=== PATIENT | male | born 1955 | race Caucasian/White ===

== ENCOUNTER → 2016-11-13 | Outpatient (CLI) | payer BC ==
[2016-11-13 11:25] VITALS: BMI 21.6
== END | disposition home or self-care (01) ==
LOC: MNTWWP 10:52
PROVIDERS: ATTEND Family Medicine
DX: E16.2 Hypoglycemia, unspecified (principal)

== ENCOUNTER 2018-02-22 03:45 | Emergency (ER) | payer BC, OTHER ==
[2018-02-22 03:55] VITALS: BP 154/101; PULSE 78; RESP 16; TEMP 97.7
[2018-02-22] MEDS ORDERED: DIPH,PERTUS(ACELL)TETVAC-LF 0.5 ML VIAL IM ONE (04:18)
--- NOTE | 2018-02-22 04:21 | ED ---
General Adult HPI - General Chief complaint: Extremity Injury, Upper Stated complaint: Finger injury Time Seen by Provider: 02/22/18 04:09 Source: patient, RN notes reviewed Mode of arrival: ambulatory Limitations: no limitations - History of Present Illness Initial comments: Patient is a pleasant 62-year-old male presenting to the emergency department following left hand injury. Incident occurred up to 10 hours ago while at work. Patient got his hand caught between the high low and a dumpster. Patient does have discomfort that increases movement. Patient has had mild bleeding persistently since that time. Patient is on a baby aspirin daily. No other injury of injury. Unclear last tetanus immunization. Discomfort is mostly the index and middle finger. - Related Data Previous Rx's Medication Instructions Recorded Cephalexin [Keflex] 500 mg PO QID #40 cap 02/22/18 Allergies Allergy/AdvReac Type Severity Reaction Status Date / Time No Known Allergies Allergy Verified 02/22/18 03:55 Review of Systems ROS Statement: Those systems with pertinent positive or pertinent negative responses have been documented in the HPI. ROS Other: All systems not noted in ROS Statement are negative. Constitutional: Denies: fever Eyes: Denies: eye pain ENT: Denies: ear pain Respiratory: Denies: cough Cardiovascular: Denies: chest pain Endocrine: Denies: fatigue Gastrointestinal: Denies: abdominal pain Genitourinary: Denies: dysuria Musculoskeletal: Denies: back pain Skin: Denies: rash Neurological: Denies: weakness Past Medical History Past Medical History: No Reported History History of Any Multi-Drug Resistant Organisms: None Reported Past Surgical History: No Surgical Hx Reported Past Psychological History: No Psychological Hx Reported Smoking Status: Current every day smoker Past Alcohol Use History: Occasional Past Drug Use History: None Reported General Exam Limitations: no limitations General appearance: alert, in no apparent distress Head exam: Present: atraumatic Eye exam: Present: normal appearance Neck exam: Present: normal inspection. Absent: tenderness Respiratory exam: Present: normal lung sounds bilaterally Cardiovascular Exam: Present: regular rate, normal rhythm GI/Abdominal exam: Present: soft. Absent: tenderness Extremities exam: Present: other (Left hand with swelling and tenderness of the index and middle finger. Limited assessment of tendon function and strength secondary to discomfort. Distally sensation is intact. Cap refill less than 2 seconds. There is a small puncture on the index finger with mild oozing. There is a laceration of the middle finger on the palmar side at the PIP.) Neurological exam: Present: alert Psychiatric exam: Present: normal affect, normal mood Skin exam: Present: normal color Course Vital Signs 02/22/18 03:52 Temperature 97.7 F Pulse Rate 78 Respiratory 16 Rate Blood Pressure 154/101 O2 Sat by Pulse 98 Oximetry Procedures - Laceration Laceration #1 Consent Obtained: verbal consent Time Out Performed: Yes Indication: laceration Site: hand Description: linear Depth: simple, single layer (No tendon visualized on a clean bloodless field.) Anesthesia Technique: nerve block (Digital block left middle finger) Pre-repair: wound explored, irrigated extensively Type of Sutures: nylon Size of Sutures: 4-0 Number of Sutures: 3 Technique: simple, interrupted Patient Tolerated Procedure: well, no complications Medical Decision Making - Medical Decision Making Patient updated on need for close follow-up with orthopedics - Radiology Data Interpreted by me: X-ray left hand does show fractures of the mid phalanx of the index and middle finger. Relatively nondisplaced. Disposition Clinical Impression: Fracture of phalanx of index finger, Fracture of finger, middle phalanx, left, open, Finger laceration Disposition: HOME SELF-CARE Condition: Stable Instructions: Laceration (ED), Hand Fracture (ED) Additional Instructions: Please start antibiotics in the morning. Please follow-up with orthopedics on Saturday for further evaluation. It is important follow-up with orthopedics regarding further care and further assessment for possible tendon injury. Return for increased pain, bleeding, worsening symptoms or other concerns. Suture removal in 8-10 days. Please keep fingers splinted until further advised by orthopedics. Twice daily wash fingers with soap and water, apply antibiotic ointment and keep bandaged and splinted. Prescriptions: Cephalexin [Keflex] 500 mg PO QID #40 cap Is patient prescribed a controlled substance at d/c from ED?: No Referrals: Ge Martinez DO [Primary Care Provider] - 1-2 days Time of Disposition: 05:28
[2018-02-22] MEDS ORDERED: LIDOCAINE 1% INJ 10MG/ML (20 ML MDV) SQ ONE (04:44)
--- NOTE | 2018-02-22 05:24 | XR ---
EXAM: XR Left Hand Complete, 3 or More Views CLINICAL HISTORY: ITS.REASON XR Reason: Pain TECHNIQUE: Frontal, lateral and oblique views of the left hand. COMPARISON: No relevant prior studies available. FINDINGS: Comminuted fracture minimally displaced middle phalanx second digit. Lucency is noted to the middle phalanx of third digit seen only on 2 of the views. Correlation with physical exam was a nondisplaced fracture of the middle phalanx of third finger cannot be totally excluded. IMPRESSION: Minimally displaced comminuted fracture middle phalanx second digit. The fracture appears to be limited to the mid diaphysis with no involvement of the articular surface
[2018-02-22] MEDS ORDERED: CEPHALEXIN 500 MG CAP PO STA (05:28)
--- NOTE | 2018-02-24 08:19 | CDI ---
Documentation Clarification OP Dear Dixon HIGUERA, DO Please do addendum to ED report that describes the laceration length and depth of the repair. Thank you, Vy Bartlett Digital Service Engineer If you have any question, Please contact coding director at [phone] 2.5 cm MTDD
== END 2018-02-22 05:48 | disposition home or self-care (01) ==
LOC: EC 03:45
DX: S62.623B Displaced fracture of middle phalanx of left middle finger, initial encounter for open fracture (principal); S62.621A Displaced fracture of middle phalanx of left index finger, initial encounter for closed fracture; S61.231A Puncture wound without foreign body of left index finger without damage to nail, initial encounter; F17.200 Nicotine dependence, unspecified, uncomplicated; Z23 Encounter for immunization; Z79.82 Long term (current) use of aspirin; W23.0XXA Caught, crushed, jammed, or pinched between moving objects, initial encounter; Y99.0 Civilian activity done for income or pay; Y92.69 Other specified industrial and construction area as the place of occurrence of the external cause
CPT/HCPCS: 12001; 90471; 90715; 99283

== ENCOUNTER 2019-11-05 11:21 | Day surgery (SDC) | payer BC, MEDICARE, OTHER ==
[2019-11-03 11:29] VITALS: BMI 24.6
--- NOTE | 2019-11-05 07:21 | P.GSHP ---
History of Present Illness H&P Date: 11/05/19 CHIEF COMPLAINT: Colon screen HISTORY OF PRESENT ILLNESS: The patient is a 64-year-old male who presents for colon screen. Lower endoscopy was offered for further evaluation and management. PAST MEDICAL HISTORY: Please see list. PAST SURGICAL HISTORY: Please see list. MEDICATIONS: Please see list. ALLERGIES: Please see list. SOCIAL HISTORY: No illicit drug use FAMILY HISTORY: No reports of Crohn disease or ulcerative colitis. REVIEW OF ORGAN SYSTEMS: CONSTITUTIONAL: No reports of fevers or chills. PHYSICAL EXAM: VITAL SIGNS: Stable GENERAL: Well-developed pleasant in no acute distress. HEENT: No scleral icterus. Extraocular movements grossly intact. Moist buccal mucosa. NECK: Supple without lymphadenopathy. CHEST: Unlabored respirations. Equal bilateral excursions. CARDIOVASCULAR: Regular rate and rhythm. Distal 2+ pulses. ABDOMEN: Soft, nontender, nondistended. MUSCULOSKELETAL: No clubbing, cyanosis, or edema. ASSESSMENT: 1. Colon screen. PLAN: 1. Recommend proceeding with a lower endoscopy Past Medical History Past Medical History: Hyperlipidemia, Hypertension History of Any Multi-Drug Resistant Organisms: None Reported Past Surgical History: Orthopedic Surgery Additional Past Surgical History / Comment(s): colonoscopy,rt hand procedure Past Anesthesia/Blood Transfusion Reactions: No Reported Reaction Smoking Status: Former smoker - Past Family History Mother Family Medical History: Cancer Additional Family Medical History / Comment(s): colon Medications and Allergies Home Medications Medication Instructions Recorded Confirmed Type Amitriptyline HCl 50 mg PO HS 11/03/19 11/03/19 History Lisinopril-Hctz 20-12.5 mg 1 tab PO DAILY 11/03/19 11/03/19 History [Zestoretic 20-12.5] Multivitamins, Thera [Multivitamin 1 tab PO DAILY 11/03/19 11/03/19 History (formulary)] Simvastatin [Zocor] 20 mg PO HS 11/03/19 11/03/19 History traMADol HCL [Ultram] 50 mg PO Q6HR PRN 11/03/19 11/03/19 History Allergies Allergy/AdvReac Type Severity Reaction Status Date / Time unk medication Allergy Unknown-pt Uncoded 11/03/19 11:[address] Martinez's office and bring in
[~2019-11-05 11:21] MED LIST: LACTATED RINGERS 1,000 ML IV SCH; LIDOCAINE 1% 20 ML VIAL (10MG/ML) FOR IV START INTRADERMA PRN
[2019-11-05 11:42] VITALS: TEMP 99.4
[2019-11-05] MEDS ORDERED: PROPOFOL 10 MG/ML 20 ML VIAL IV ONE (13:07)
--- NOTE | 2019-11-05 13:34 | P.PCN ---
Date of Procedure: 11/05/19 Description of Procedure: PREOPERATIVE DIAGNOSIS: Personal history of colon polyps Colonoscopy screening. POSTOPERATIVE DIAGNOSIS: Personal history of colon polyps Colonoscopy screening Sigmoid diverticulosis Acute respiratory bronchospasm Multiple tubular adenomas throughout the colon OPERATION: Colonoscopy to the ileocecal valve and appendiceal orifice. SURGEON: Sandy Lemons MD. ANESTHESIA: MAC. INDICATIONS: The patient is a 64-year-old male who presents for colonoscopy screening. Last colonoscopy over 5 years ago. Benefits and risks were described and informed consent was obtained. DESCRIPTION OF PROCEDURE: The patient had undergone Suprep. He had been brought into the operating room and laid in the left lateral decubitus position. After adequate intravenous sedation, the rectum was examined with 2% lidocaine jelly. No external hemorrhoids were encountered. The rectal tone was within normal limits. No lesions were palpated in the rectal vault. An Olympus colonoscope was advanced until the ileocecal valve and appendiceal orifice were clearly viewed. The prep was excellent with clear visualization of the mucosal folds. The scope was removed with visualization of each mucosal fold. Severe sigmoid diverticulosis was encountered. No evidence of focal colitis was found. Retroflexion of the scope demonstrated grade 1 internal hemorrhoids without active bleeding or inflammation. Multiple polyps tubular adenomas were identified along the sigmoid colon including transverse and ascending colon. Moderate sized diverticulosis was found. During the procedure, patient decompensated with oxygen saturation in the 60s. Patient was bag masked alongside with anesthesia. As a result, the procedure was terminated. Chest x-ray ordered secondary to acute bronchospasm FINDINGS: Aronchick preparation quality scale 1 (1-5) Internal hemorrhoids, grade 2 No external prolapsed hemorrhoids. No arteriovenous malformations. Multiple tubular adenomatous polyps along ascending colon, transverse colon and sigmoid colon unable to retrieve due to early termination of his procedure from acute bronchospasm No focal colitis. RECOMMENDATIONS: 1. Recommend colonoscopy in 6 months, Apr 2020, after pulmonary workup 2. May also benefit from upper endoscopy for likely gastroesophageal reflux disease exacerbating acute bronchospasm. Plan - Discharge Summary Discharge Rx Participant: No New Discharge Prescriptions: Continue traMADol HCL [Ultram] 50 mg PO Q6HR PRN PRN Reason: Pain Simvastatin [Zocor] 20 mg PO HS Lisinopril-Hctz 20-12.5 mg [Zestoretic 20-12.5] 1 tab PO DAILY Amitriptyline HCl 50 mg PO HS Multivitamins, Thera [Multivitamin (formulary)] 1 tab PO DAILY Discharge Medication List Amitriptyline HCl 50 mg PO HS 11/03/19 [History] Lisinopril-Hctz 20-12.5 mg [Zestoretic 20-12.5] 1 tab PO DAILY 11/03/19 [History] Multivitamins, Thera [Multivitamin (formulary)] 1 tab PO DAILY 11/03/19 [History] Simvastatin [Zocor] 20 mg PO HS 11/03/19 [History] traMADol HCL [Ultram] 50 mg PO Q6HR PRN 11/03/19 [History] Follow up Appointment(s)/Referral(s): Sandy Lemons MD [STAFF PHYSICIAN] - 11/17/19 11:00 am Patient Instructions/Handouts: *Sur[facility] - (Anesthesia) Endoscopy Discharge Instructions, How to Stop Smoking (DC), Diverticulosis (ED), Colorectal Polyps (DC), Diverticulosis Diet (GEN), Bronchospasm (ED), Colonoscopy (DC) Activity/Diet/Wound Care/Special Instructions: Repeat colonoscopy in 6 months, April 2020. Recommended tobacco cessation and upper endoscopy at the time of your procedure. Discharge Disposition: HOME SELF-CARE
--- NOTE | 2019-11-05 14:05 | XR ---
EXAMINATION TYPE: XR chest 1V portable DATE OF EXAM: 11/05/2019 COMPARISON: 06/27/2016 INDICATION: Short of breath TECHNIQUE: Single frontal view of the chest is obtained. FINDINGS: The heart size is normal. The pulmonary vasculature is normal. The lungs are clear. IMPRESSION: 1. No acute pulmonary process.
[2019-11-05 14:49] VITALS: BP 115/76; PULSE 82; RESP 18
== END 2019-11-05 15:16 | disposition home or self-care (01) ==
LOC: ORWHC2ENDO 11:21
PROVIDERS: ATTEND Surgery Plastic and Reconstructive Surgery
DX: Z12.11 Encounter for screening for malignant neoplasm of colon (principal); K57.30 Diverticulosis of large intestine without perforation or abscess without bleeding; K64.0 First degree hemorrhoids; D12.2 Benign neoplasm of ascending colon; D12.3 Benign neoplasm of transverse colon; D12.5 Benign neoplasm of sigmoid colon; Z53.09 Procedure and treatment not carried out because of other contraindication; Z86.010 Personal history of colon polyps; Z80.0 Family history of malignant neoplasm of digestive organs; J98.01 Acute bronchospasm; E78.5 Hyperlipidemia, unspecified; I10 Essential (primary) hypertension; K08.89 Other specified disorders of teeth and supporting structures; Z88.8 Allergy status to other drugs, medicaments and biological substances; Z79.899 Other long term (current) drug therapy; Z98.890 Other specified postprocedural states; Z87.891 Personal history of nicotine dependence
CPT/HCPCS: 71045; J2704; G0105; 45378

== ENCOUNTER 2022-02-14 10:52 | Day surgery (SDC) | payer MEDICARE ==
[~2022-02-14 10:52] MED LIST changes: +LIDOCAINE 1% (10MG/ML) FOR IV START INTRADERMA PRN; -LIDOCAINE 1% 20 ML VIAL (10MG/ML) FOR IV START INTRADERMA PRN
[2022-02-14 11:38] VITALS: RESP 16; TEMP 98.6
[2022-02-14] MEDS ORDERED: PROPOFOL 10 MG/ML 20 ML VIAL IV ONE (12:26)
--- NOTE | 2022-02-14 12:56 | P.PCN ---
Date of Procedure: 02/14/22 Procedure(s) Performed: BRIEF HISTORY: Patient is a 66-year-old pleasant white male scheduled for an elective colonoscopy as a part of evaluation of history of colon polyps. He also has family history of colon cancer diagnosed in his mother. He had an attempted colonoscopy by Dr. Lemons years ago and was noted to have colon polyps in the ascending and transverse colon which were not removed as the patient had some bronchospasm and procedure was terminated. PROCEDURE PERFORMED: Colonoscopy with snare polypectomy. PREOPERATIVE DIAGNOSIS: History of colon polyps/family history of colon cancer. IV sedation per Anesthesia. PROCEDURE: After informed consent was obtained, the patient, was brought into the endoscopy unit. IV sedation was administered by Anesthesia under continuous monitoring. Digital rectal examination was normal. Initially the Olympus CF-160 flexible video colonoscope was then inserted in the rectum, gradually advanced into the cecum without any difficulty. Careful examination was performed as the scope was gradually being withdrawn. Ileocecal valve and the appendiceal orifice were visualized and appeared normal. Prep was poor and several areas of the colon. Thorough irrigation was performed. The base of the cecum there was a 3 mm and 5 limited polyp removed by snare polypectomy. In the ascending colon there was a 2.5 cm broad-based polyp removed by piecemeal snare polypectomy and complete polypectomy was accomplished. In the transverse colon there were 3 polyps measuring between 8 mm to 1 cm in size removed by snare polypectomy. In the descending colon there was a 2 cm broad-based polyp and a 5 mm polyp removed by snare polypectomy. Moderate left sided diverticulosis seen. Mucosa of the , sigmoid colon, and rectum appeared normal. Retroflexion was performed in the rectum and no lesions were seen. The patient tolerated the procedure well. IMPRESSION: 2.5 cm ascending colon polyp broad-based ascending colon polyp status post polypectomy 3 mm and 5 mm cecal polyp status post polypectomy 1 cm flat transverse colon polyp status post polypectomy 2 cm broad-based desscending colon polyp and a 5 mm polyp status post polypectomy Moderate sigmoid diverticulosis RECOMMENDATIONS: Findings of this examination were discussed with the patient as well as his family. He was advised to follow with the biopsy results and have a repeat colonoscopy in 2 years.
[2022-02-14 13:26] VITALS: BP 126/81; PULSE 77
== END 2022-02-14 13:35 | disposition home or self-care (01) ==
LOC: ORWHC2ENDO 10:52
PROVIDERS: ATTEND Internal Medicine Gastroenterology
DX: Z12.11 Encounter for screening for malignant neoplasm of colon (principal); D12.0 Benign neoplasm of cecum; D12.2 Benign neoplasm of ascending colon; D12.3 Benign neoplasm of transverse colon; D12.4 Benign neoplasm of descending colon; K57.30 Diverticulosis of large intestine without perforation or abscess without bleeding; I10 Essential (primary) hypertension; E78.5 Hyperlipidemia, unspecified; Z86.010 Personal history of colon polyps; Z80.0 Family history of malignant neoplasm of digestive organs; Z87.891 Personal history of nicotine dependence; Z79.899 Other long term (current) drug therapy
CPT/HCPCS: 88305; 45385; J2704

== ENCOUNTER 2024-04-03 12:06 | Day surgery (SDC) | payer MEDICARE ==
[2024-03-31 16:51] VITALS: BMI 21.6
[~2024-04-03 12:06] MED LIST changes: -LACTATED RINGERS 1,000 ML IV SCH
[2024-04-03 13:11] VITALS: TEMP 97.7
[2024-04-03] MEDS: IV FLUID CONTINUATION 1,000 ML IV ONE (13:16)
[2024-04-03] MEDS: LACTATED RINGERS 1,000 ML IV SCH (13:16)
[2024-04-03] MEDS ORDERED: PROPOFOL 10 MG/ML 20 ML VIAL IV ONE (14:37)
--- NOTE | 2024-04-03 14:54 | P.PCN ---
Date of Procedure: 04/03/24 Procedure(s) Performed: BRIEF HISTORY: Patient is a 68-year-old pleasant white male scheduled for an elective colonoscopy as a part of evaluation of prior history of colon polyps. Last colonoscopy was 2 years ago. PROCEDURE PERFORMED: Colonoscopy with snare polypectomy. PREOPERATIVE DIAGNOSIS: History of colon polyps IV sedation per Anesthesia. PROCEDURE: After informed consent was obtained, the patient, was brought into the endoscopy unit. IV sedation was administered by Anesthesia under continuous monitoring. Digital rectal examination was normal. Initially the Olympus CF-160 flexible video colonoscope was then inserted in the rectum, gradually advanced into the cecum without any difficulty. Careful examination was performed as the scope was gradually being withdrawn. Ileocecal valve and the appendiceal orifice were visualized and appeared normal. Prep was excellent. Mucosa of the cec um,been normal. In the ascending colon there was a 5 mm and 1.5 cm broad-based polyp removed by snare polypectomy. Rest of the ascending colon, transverse colon, descending colon, sigmoid colon, and rectum appeared normal.in the sigmoid: There was a 3 mm polyp removed by snare polypectomy. Scattered sigmoid diverticula seen. Retroflexion was performed in the rectum and no lesions were seen. The patient tolerated the procedure well. IMPRESSION: 5 mm and 1.5 centimeter broad-based based ascending colon status post polypectomy 3 mm sigmoid polyp status post polypectomy Scattered sigmoid diverticulosis RECOMMENDATIONS: Findings of this examination were discussed with the patient as well as his family. He was advised to follow with the biopsy results. If the biopsy with adenoma he can have a repeat colonoscopy in 3 years.
[2024-04-03 15:03] VITALS: RESP 16
[2024-04-03 15:12] VITALS: BP 107/78; PULSE 78
== END 2024-04-03 15:29 | disposition home or self-care (01) ==
LOC: ORWHC2ENDO 12:06
PROVIDERS: ATTEND Internal Medicine Gastroenterology
DX: Z12.11 Encounter for screening for malignant neoplasm of colon (principal); D12.2 Benign neoplasm of ascending colon; D12.5 Benign neoplasm of sigmoid colon; K57.30 Diverticulosis of large intestine without perforation or abscess without bleeding; Z86.010 Personal history of colon polyps; Z80.0 Family history of malignant neoplasm of digestive organs; I10 Essential (primary) hypertension; E78.5 Hyperlipidemia, unspecified; Z87.891 Personal history of nicotine dependence; Z88.8 Allergy status to other drugs, medicaments and biological substances; Z79.899 Other long term (current) drug therapy
CPT/HCPCS: 88305; 45385; J2704

== ENCOUNTER 2024-04-14 11:23 | Inpatient (IN) | payer MEDICARE ==
[2024-04-14] MEDS: PANTOPRAZOLE 40 MG/10 ML VIAL IVP STA (11:58)
[2024-04-14] MEDS: SODIUM CHLORIDE 0.9% 500 ML 500 ML IV STA (11:58)
[2024-04-14 12:08] LABS: Basophils % (A) 0 %; Eosinophils # (A) 0.1 k/uL (0-0.7); Eosinophils % (A) 1 %; HCT 39.9 % (39.0-53.0); HGB 13.5 gm/dL (13.0-17.5); Lymphocytes # (A) 3.2 k/uL (1.0-4.8); Lymphocytes % (A) 30 %; MCH 29.2 pg (25.0-35.0); MCHC 33.7 g/dL (31.0-37.0); MCV 86.7 fL (80.0-100.0); Mean Platelet Volume 7.9; Monocytes # (A) 0.6 k/uL (0-1.0); Monocytes % (A) 6 %; Neutrophils # (A) 6.5 k/uL (1.3-7.7); Neutrophils % (A) 61 %; Platelet Count 280 k/uL (150-450); RBC 4.61 m/uL (4.30-5.90); WBC 10.6 k/uL (3.8-10.6)
[2024-04-14 12:20] LABS: Partial Thromboplastin Time 24.7 sec (22.0-30.0); Prothrombin Time 10.7 sec (10.0-12.5)
[2024-04-14 12:26] LABS: ALT 18 U/L (4-49); AST 24 U/L (17-59); African American GFR (CKD) >90 (>60 ml/min/1.73 sqM); Albumin 4.1 g/dL (3.5-5.0); Alkaline Phosphatase 82 U/L (38-126); Anion Gap 9 mmol/L; Blood Urea Nitrogen 33 mg/dL (9-20); Calcium 8.8 mg/dL (8.4-10.2); Carbon Dioxide 20 mmol/L (22-30); Chloride 107 mmol/L (98-107); Glucose 98 mg/dL (74-99); Lipase 115 U/L (23-300); Magnesium 1.9 mg/dL (1.6-2.3); Non-African American GFR(CKD) >90 (>60 ml/min/1.73 sqM); Sodium 136 mmol/L (137-145); Total Bilirubin 0.5 mg/dL (0.2-1.3); Total Protein 6.3 g/dL (6.3-8.2)
--- NOTE | 2024-04-14 13:14 | ED ---
General Adult HPI - General Chief complaint: GI Bleed Stated complaint: rectal bleed Time Seen by Provider: 04/14/24 11:35 Source: patient, RN notes reviewed, old records reviewed Mode of arrival: ambulatory Limitations: no limitations - History of Present Illness Initial comments: Patient is a 68-year-old male who presents emergency department complaining of GI bleed. Is noticed that he has had blood per rectum since yesterday. 12 days ago had a colonoscopy done. Is not on blood thinners. States he has not had substantial episodes of this today however did have a small episode this morning which is why presents for further evaluation. Denies any lightheadedness. Denies chest pain or shortness of breath. No hematemesis. Does not use Motrin or Tylenol frequently. Presents for evaluation. Dr. Moreno completed the patient's colonoscopy 12 days ago. - Related Data Home Medications Medication Instructions Recorded Confirmed Amitriptyline HCl 25 mg PO HS 11/03/19 04/14/24 Multivitamins, Thera [Multivitamin 1 tab PO DAILY 11/03/19 04/14/24 (formulary)] Simvastatin [Zocor] 20 mg PO HS 11/03/19 04/14/24 hydroCHLOROthiazide 12.5 mg PO DAILY 03/31/24 04/14/24 lisinopriL [Zestril] 20 mg PO DAILY 03/31/24 04/14/24 Allergies Allergy/AdvReac Type Severity Reaction Status Date / Time citalopram [From Celexa] Allergy Unknown Verified 04/14/24 13:47 Review of Systems ROS Statement: Those systems with pertinent positive or pertinent negative responses have been documented in the HPI. Review of Systems: CONST: Denies fever EYES: Denies blurry vision ENT: Denies nasal congestion C/V: Denies Chest pain RESP: Denies shortness of breath GI: Denies abdominal pain : Denies dysuria SKIN: Denies rash. MSK: Denies joint pain. NEURO: Denies headache ROS Other: All systems not noted in ROS Statement are negative. Past Medical History Past Medical History: Hyperlipidemia, Hypertension History of Any Multi-Drug Resistant Organisms: None Reported Past Surgical History: Orthopedic Surgery Additional Past Surgical History / Comment(s): colonoscopy, rt hand procedure, ORIF RT ANKLE Past Anesthesia/Blood Transfusion Reactions: No Reported Reaction Past Psychological History: Depression Smoking Status: Former smoker - Past Family History Mother Family Medical History: Cancer Additional Family Medical History / Comment(s): colon General Exam - General Exam Comments Initial Comments: General: Appears in no acute distress. HEAD: Normal with no signs of head trauma. EYES: PERRLA, EOMI, conjunctiva normal, no discharge. ENT: Hearing grossly intact, normal oropharynx. RESPIRATORY: Clear breath sounds bilaterally. No wheezes, rales, or rhonchi. C/V: Regular rate and rhythm. S1 and S2 auscultated, no edema, peripheral pulses 2+ and intact throughout ABD: Abd is soft, nontender, nondistended. Rectal exam completed by myself and revealed Gross melena present on rectal exam.. Good rectal tone. EXT: Normal range of motion, no obvious deformity SKIN: No rashes or lesions observed on exposed skin. NEURO: Alert and oriented x 4. Limitations: no limitations Course Vital Signs 04/14/24 04/14/24 11:24 13:49 Temperature 97.8 F Pulse Rate 89 86 Respiratory 20 18 Rate Blood Pressure 138/100 116/73 O2 Sat by Pulse 98 96 Oximetry Medical Decision Making - Medical Decision Making Was pt. sent in by a medical professional or institution (, PA, PETROGRAPHER, urgent care, hospital, or senior care...) When possible be specific @ -No Did you speak to anyone other than the patient for history (EMS, parent, family, police, friend...)? What history was obtained from this source @ -No Did you review nursing and triage notes (agree or disagree)? Why? @ -I reviewed and agree with nursing and triage notes Were old charts reviewed (outside hosp., previous admission, EMS record, old EKG, old radiological studies, urgent care reports/EKG's, senior care records)? Report findings @ -No old charts were reviewed Differential Diagnosis (chest pain, altered mental status, abdominal pain women, abdominal pain men, vaginal bleeding, weakness, fever, dyspnea, syncope, headache, dizziness, GI bleed, back pain, seizure, CVA, palpatations, mental health, musculoskeletal)? @ -Differential GI Bleed: Esophageal varices, aortoenteric fistula, Cira-Barr, gastritis, peptic ulcer disease, diverticulosis, inflammatory bowel disease, hemorrhoids, fissure, colitis, malignancy, Meckels diverticulum, this is not meant to be an all-i nclusive list. EKG interpreted by me (3pts min.). @ -As above X-rays interpreted by me (1pt min.). @ -None done CT interpreted by me (1pt min.). @ -CT angiogram of the abdomen pelvis reveals no evidence of active GI bleed. Patient has diffuse diverticulosis. U/S interpreted by me (1pt. min.). @ -None done What testing was considered but not performed or refused? (CT, X-rays, U/S, labs)? Why? @ -None What meds were considered but not given or refused? Why? @ -None Did you discuss the management of the patient with other professionals (professionals i.e. , PA, PETROGRAPHER, lab, RT, psych nurse, case management social worker, patient access manager, teacher, ground nuclear weapons assembly officer, case management social worker)? Give summary @ -Discussed management with GI Dr. Moreno who recommended observation admission and accepted the consult. I spoke with Dr. Adair of [facility] who accepted the admission. Was smoking cessation discussed for >3mins.? @ -No Was critical care preformed (if so, how long)? @ -No Were there social determinants of health that impacted care today? How? (Homelessness, low income, unemployed, alcoholism, drug addiction, transporta tion, low edu. Level, literacy, decrease access to med. care, skilled nursing, rehab)? @ -No Was there de-escalation of care discussed even if they declined (Discuss DNR or withdrawal of care, Hospice)? DNR status @ -No What co-morbidities impacted this encounter? (DM, HTN, Smoking, COPD, CAD, Cancer, CVA, ARF, Chemo, Hep., AIDS, mental health diagnosis, sleep apnea, morbid obesity)? @ -Recent colonoscopy Was patient admitted / discharged? Hospital course, mention meds given and route, prescriptions, significant lab abnormalities, going to OR and other pertinent info. @ -Based on the patient's presentation and physical exam, presents with GI bleed. Will obtain GI bleed workup including labs. Rectal exam does not show gross red blood per rectum. Occult sent. Type and screen sent. We will obtain CT angiogram of the abdomen pelvis as well. Patient was in agreement this plan. She he is not on blood thinners. Patient will be symptomatically treated the small fluid bolus as well as IV Protonix. Vital signs within acceptable limits. EKG shows no signs of acute ischemia. Laboratory studies are remarkable for hemoglobin is within normal limits at 13.5. Positive occult blood. Elevated BUN. Remainder the workup unremarkable. CT negative for any obvious acute process. No evidence of active GI bleed. On reevaluation I did discuss with the patient. I recommended observation admission as patient had gross melanotic stool on rectal exam with multiple episodes last night as well as 1 this morning. He asked that I talk with his GI specialist, Dr. Lee. I discussed with Dr. Moreno who was in agreement this plan. Also agreed with the plan for observation due to concern for upper GI bleed as the patient has an elevated BUN in addition to the rectal exam findings. I discussed with the patient regarding this and he was in agreement with observation admission at this time. Undiagnosed new problem with uncertain prognosis? @ -No Drug Therapy requiring intensive monitoring for toxicity (Heparin, Nitro, Insulin, Cardizem)? @ -No Were any procedures done? @ -No Diagnosis/symptom? @ -Upper GI bleed, melena Acute, or Chronic, or Acute on Chronic? @ -Acute Uncomplicated (without systemic symptoms) or Complicated (systemic symptoms)? @ -Complicated Side effects of treatment? @ -None Exacerbation, Progression, or Severe Exacerbation] @ -No Poses a threat to life or bodily function? @ -Potentially, yes - Lab Data Result diagrams: 04/14/24 11:53 04/14/24 11:53 Lab Results 04/14/24 04/14/24 04/14/24 Range/Units 11:50 11:53 11:53 WBC 10.6 (3.8-10.6) k/uL RBC 4.61 (4.30-5.90) m/uL Hgb 13.5 (13.0-17.5) gm/dL Hct 39.9 (39.0-53.0) % MCV 86.7 (80.0-100.0) fL MCH 29.2 (25.0-35.0) pg MCHC 33.7 (31.0-37.0) g/dL RDW 13.0 (11.5-15.5) % Plt Count 280 (150-450) k/uL MPV 7.9 Neutrophils % 61 % Lymphocytes % 30 % Monocytes % 6 % Eosinophils % 1 % Basophils % 0 % Neutrophils # 6.5 (1.3-7.7) k/uL Lymphocytes # 3.2 (1.0-4.8) k/uL Monocytes # 0.6 (0-1.0) k/uL Eosinophils # 0.1 (0-0.7) k/uL Basophils # 0.0 (0-0.2) k/uL PT 10.7 (10.0-12.5) sec INR 1.0 (<1.2) APTT 24.7 (22.0-30.0) sec Sodium (137-145) mmol/L Potassium (3.5-5.1) mmol/L Chloride (98-107) mmol/L Carbon Dioxide (22-30) mmol/L Anion Gap mmol/L BUN (9-20) mg/dL Creatinine (0.66-1.25) mg/dL Est GFR (CKD-EPI)AfAm (>60 ml/min/1.73 sqM) Est GFR (CKD-EPI)NonAf (>60 ml/min/1.73 sqM) Glucose (74-99) mg/dL Plasma Lactic Acid Roderick (0.7-2.0) mmol/L Calcium (8.4-10.2) mg/dL Magnesium (1.6-2.3) mg/dL Total Bilirubin (0.2-1.3) mg/dL AST (17-59) U/L ALT (4-49) U/L Alkaline Phosphatase (38-126) U/L Total Protein (6.3-8.2) g/dL Albumin (3.5-5.0) g/dL Lipase (23-300) U/L Stool Occult Blood (Negative) Blood Type Blood Type Confirm O Positive Blood Type Recheck Bld Type Recheck Status Antibody Screen Spec Expiration Date 04/14/24 04/14/24 04/14/24 Range/Units 11:53 11:53 11:53 WBC (3.8-10.6) k/uL RBC (4.30-5.90) m/uL Hgb (13.0-17.5) gm/dL Hct (39.0-53.0) % MCV (80.0-100.0) fL MCH (25.0-35.0) pg MCHC (31.0-37.0) g/dL RDW (11.5-15.5) % Plt Count (150-450) k/uL MPV Neutrophils % % Lymphocytes % % Monocytes % % Eosinophils % % Basophils % % Neutrophils # (1.3-7.7) k/uL Lymphocytes # (1.0-4.8) k/uL Monocytes # (0-1.0) k/uL Eosinophils # (0-0.7) k/uL Basophils # (0-0.2) k/uL PT (10.0-12.5) sec INR (<1.2) APTT (22.0-30.0) sec Sodium 136 L (137-145) mmol/L Potassium 4.0 (3.5-5.1) mmol/L Chloride 107 (98-107) mmol/L Carbon Dioxide 20 L (22-30) mmol/L Anion Gap 9 mmol/L BUN 33 H (9-20) mg/dL Creatinine 0.80 (0.66-1.25) mg/dL Est GFR (CKD-EPI)AfAm >90 (>60 ml/min/1.73 sqM) Est GFR (CKD-EPI)NonAf >90 (>60 ml/min/1.73 sqM) Glucose 98 (74-99) mg/dL Plasma Lactic Acid Roderick 1.9 (0.7-2.0) mmol/L Calcium 8.8 (8.4-10.2) mg/dL Magnesium 1.9 (1.6-2.3) mg/dL Total Bilirubin 0.5 (0.2-1.3) mg/dL AST 24 (17-59) U/L ALT 18 (4-49) U/L Alkaline Phosphatase 82 (38-126) U/L Total Protein 6.3 (6.3-8.2) g/dL Albumin 4.1 (3.5-5.0) g/dL Lipase 115 (23-300) U/L Stool Occult Blood Positive (Negative) Blood Type Blood Type Confirm Blood Type Recheck Bld Type Recheck Status Antibody Screen Spec Expiration Date 04/14/24 Range/Units 11:53 WBC (3.8-10.6) k/uL RBC (4.30-5.90) m/uL Hgb (13.0-17.5) gm/dL Hct (39.0-53.0) % MCV (80.0-100.0) fL MCH (25.0-35.0) pg MCHC (31.0-37.0) g/dL RDW (11.5-15.5) % Plt Count (150-450) k/uL MPV Neutrophils % % Lymphocytes % % Monocytes % % Eosinophils % % Basophils % % Neutrophils # (1.3-7.7) k/uL Lymphocytes # (1.0-4.8) k/uL Monocytes # (0-1.0) k/uL Eosinophils # (0-0.7) k/uL Basophils # (0-0.2) k/uL PT (10.0-12.5) sec INR (<1.2) APTT (22.0-30.0) sec Sodium (137-145) mmol/L Potassium (3.5-5.1) mmol/L Chloride (98-107) mmol/L Carbon Dioxide (22-30) mmol/L Anion Gap mmol/L BUN (9-20) mg/dL Creatinine (0.66-1.25) mg/dL Est GFR (CKD-EPI)AfAm (>60 ml/min/1.73 sqM) Est GFR (CKD-EPI)NonAf (>60 ml/min/1.73 sqM) Glucose (74-99) mg/dL Plasma Lactic Acid Roderick (0.7-2.0) mmol/L Calcium (8.4-10.2) mg/dL Magnesium (1.6-2.3) mg/dL Total Bilirubin (0.2-1.3) mg/dL AST (17-59) U/L ALT (4-49) U/L Alkaline Phosphatase (38-126) U/L Total Protein (6.3-8.2) g/dL Albumin (3.5-5.0) g/dL Lipase (23-300) U/L Stool Occult Blood (Negative) Blood Type O Positive Blood Type Confirm Blood Type Recheck No Previous Record Bld Type Recheck Status CABO Indicated Antibody Screen NEGATIVE Spec Expiration Date 04/17/2024 8036 - EKG Data -: EKG Interpreted by Me EKG Comments: 12-lead Electrocardiogram Interpretation Note EKG was reviewed and interpreted by myself. 12-lead ECG performed at 1147 is interpreted by me as revealing normal sinus rhythm at a rate of 90 beats per minute. [place] is normal. [place] interval is 156 ms, QRS durations 86 ms, QTc is 386 ms.. There were no ST or T wave abnormalities to suggest myocardial ischemia or injury. R wave progression across the precordium was satisfactory. By my interpretation this EKG is non-diagnostic for acute ischemia. Disposition Clinical Impression: Melena, Upper GI bleed Disposition: ADMITTED IP TO THIS HOSP Condition: Stable Referrals: Ge Martinez DO [Primary Care Provider] - 1-2 days Time of Disposition: 14:40
--- NOTE | 2024-04-14 13:40 | CT ---
EXAMINATION TYPE: CT angio abdomen pelvis, without and with contrast DATE OF EXAM: 04/14/2024 COMPARISON: NONE HISTORY: 68-year-old male Blood in stool. TECHNIQUE: Contiguous axial scanning of the abdomen and pelvis before and after administration of 100 ml Isovue-370 IV contrast. Delayed also obtained for GI bleed protocol. Coronal/sagittal MIP recons tructions performed. CT DLP: 1407 mGycm Automated exposure control for dose reduction was used. FINDINGS: The heart is upper limits of normal in size without pericardial effusion. Prominent patchy and bandlike dependent atelectasis in the lower lungs without pleural effusion. Small hiatal hernia. A few scattered hepatic cysts measuring up to 2.2 cm. Portal venous system is patent. No biliary duct al dilatation. Gallbladder, adrenal glands, and pancreas within normal limits. Numerous bilateral renal cortical cysts measuring up to 1.8 cm. Nonobstructing 1.1 cm left renal calc ulus. Symmetric uptake of contrast from both kidneys. Calcified granulomas within the spleen. No dilated small bowel, free fluid, or free air. No mesenteric or retroperitoneal lymphadenopathy. Normal appendix. There is mild to moderate scattered stool. There is left-sided colonic diverticulosi s but extensive within the sigmoid colon. No extravasating contrast is identified. Mild aneurysmal dilatation of the lower descending thoracic aorta 3.1 cm. No AAA. Bladder is prominently distended. Prostate gland is enlarged 5.6 cm wide. Patulous right inguinal can al. Partially visualized right-sided hydrocele. No abnormal fluid collection in the pelvis or pelvic lymphadenopathy. Bones: Degenerative bony ankylosis SI joints. Hypertrophic facet arthropathy mid to lower lumbar spin e. IMPRESSION: 1. LEFT-SIDED COLONIC DIVERTICULOSIS, EXTENSIVE WITHIN THE SIGMOID COLON. NO EVIDENCE FOR ACUTE DIVER TICULITIS. NO ACTIVE CONTRAST EXTRAVASATION IDENTIFIED BY CT. 2. INCIDENTAL: PROMINENT DEPENDENT ATELECTASIS IN THE LUNGS. SMALL HIATAL HERNIA. EVIDENCE OF PRIOR G RANULOMATOUS DISEASE. A 1.1 CM NONOBSTRUCTIVE LEFT RENAL CALCULUS. PROSTATOMEGALY AT 5.6 CM WIDE. PAR TIALLY VISUALIZED RIGHT SCROTAL HYDROCELE.
[2024-04-14] MEDS ORDERED: NALOXONE 0.4 MG/ML 1 ML VIAL IV PRN (14:40)
[2024-04-14] MEDS ORDERED: ONDANSETRON 4 MG/2 ML VIAL IVP PRN (14:40)
[2024-04-14] MEDS: ATORVASTATIN 10 MG TAB PO SCH (20:28)
[2024-04-14] MEDS: AMITRIPTYLINE HCL 25 MG TAB PO SCH (20:28)
--- NOTE | 2024-04-15 01:01 | P.HPIM ---
History of Present Illness H&P Date: 04/14/24 Chief Complaint: Rectal bleeding Patient is a 68-year-old male with past medical history of hypertension, hyperlipidemia, depression and prior history of smoking presents to ER with complaints of rectal bleed. Patient states that he had colonoscopy about 11 days ago. He is did notice blood in the stool yesterday and small episode this morning. Bright red in color. Otherwise patient denies any lightheadedness. No complaints of chest pain or shortness of breath. No abdominal pain. No cough or sputum production. CT of the abdomen pelvis was done showed left-sided colonic diverticulosis, extensive within the sigmoid colon no evidence for acute diverticulitis. No active contrast extravasation identified by CT. Incidental prominent dependent atelectasis in the lungs. Small hiatal hernia. Evidence of prior granulomatous disease. 1.1 cm nonobstructive left renal calculus. Prostatomegaly at 5.6 cm wide. Partially visualized right scrotal hydrocele. EKG showed sinus rhythm. Laboratory data showed WBC 10.6 hemoglobin 13.5 and platelets 280 sodium 136 potassium 4.0 chloride 107 bicarb is 20 BUN 33 and creatinine 0.18 blood sugar 98 liver enzymes are not elevated. FOBT positive. Review of Systems Constitutional: Patient denies any fever or chills . No generalized weakness or weight loss. Abdomen: Patient denied nausea vomiting and diarrhea and abdominal pain. Blood per rectum Cardiovascular: Patient denies any chest pain or short of breath no palpitations. Respiratory: patient denied any cough or sputum production. No shortness of breath Neurologic: Patient denied any numbness or tingling. no headache. Musculoskeletal: Patient denies any complaints of joint swelling or deformity. Skin: Negative Psychiatric: Negative Endocrine: No heat or cold intolerance. No recent weight gain. Genitourinary: No dysuria or hematuria. All other 14 point ROS negative except the above Past Medical History Past Medical History: Hyperlipidemia, Hypertension History of Any Multi-Drug Resistant Organisms: None Reported Past Surgical History: Orthopedic Surgery Additional Past Surgical History / Comment(s): colonoscopy, rt hand procedure, ORIF RT ANKLE Past Anesthesia/Blood Transfusion Reactions: No Reported Reaction Past Psychological History: Depression Smoking Status: Former smoker - Past Family History Mother Family Medical History: Cancer Additional Family Medical History / Comment(s): colon Medications and Allergies Home Medications Medication Instructions Recorded Confirmed Type Amitriptyline HCl 25 mg PO HS 11/03/19 04/14/24 History Multivitamins, Thera [Multivitamin 1 tab PO DAILY 11/03/19 04/14/24 History (formulary)] Simvastatin [Zocor] 20 mg PO HS 11/03/19 04/14/24 History hydroCHLOROthiazide 12.5 mg PO DAILY 03/31/24 04/14/24 History lisinopriL [Zestril] 20 mg PO DAILY 03/31/24 04/14/24 History Allergies Allergy/AdvReac Type Severity Reaction Status Date / Time citalopram [From Celexa] Allergy Unknown Verified 04/14/24 13:47 Physical Exam Vitals: Vital Signs Temp Pulse Resp BP Pulse Ox 04/14/24 13:49 86 18 116/73 96 04/14/24 11:24 97.8 F 89 20 138/100 98 Intake and Output 04/14/24 04/14/24 04/14/24 06:59 14:59 22:59 Other: Weight 65.317 kg PHYSICAL EXAMINATION: Patient is lying in the bed comfortably, no acute distress, awake alert and oriented.. HEENT: Normocephalic. Neck is supple. Pupils reactive. Nostrils clear. Oral cavity is moist. Neck reveals no JVD, carotid bruits, or thyromegaly. CHEST EXAMINATION: Trachea is central. Symmetrical expansion. Lung newton clear to auscultation and percussion. CARDIAC: Normal S1, S2 with no gallops. No murmurs ABDOMEN: Soft. Bowel sounds normal. No organomegaly. No abdominal bruits. Extremities: reveal no edema. No clubbing or cyanosis Neurologically awake, alert, oriented x3 with well-coordinated movements. No focal deficits noted Skin: No rash or skin lesions. Psychiatric: Coperative. Nonsuicidal Musculoskeletal: No joint swelling or deformity. Normal range of motion. Results CBC & Chem 7: 04/15/24 04:13 04/15/24 04:13 Labs: Abnormal Lab Results - Last 24 Hours (Table) 04/14/24 Range/Units 11:53 Sodium 136 L (137-145) mmol/L Carbon Dioxide 20 L (22-30) mmol/L BUN 33 H (9-20) mg/dL Thrombosis Risk Factor Assmnt - DVT/VTE Prophylaxis DVT/VTE Prophylaxis: Mechanical Prophylaxis ordered Assessment and Plan Assessment: Rectal bleeding. Patient underwent colonoscopy on 04/03/2024. Status post polypectomy. Acute GI bleed likely lower. Acute blood loss anemia Nonobstructive left renal calculus 1.1 cm Prostatomegaly Hypertension Depression DVT prophylaxis SCDs Plan: Patient will be continued on IV hydration normal saline. N.p.o. GI consult. Continue with PPI. Continue to monitor H&H. Continue other home medications an d follow-up closely. Time with Patient: Greater than 30
[2024-04-15] MEDS: SODIUM CHLORIDE 0.9% 1,000 ML IV SCH (01:27)
[2024-04-15 08:34] LABS: Basophils # (A) 0.02 X 10*3/uL (0.00-0.10); Basophils % (A) 0.3 %; Eosinophils # (A) 0.14 X 10*3/uL (0.04-0.35); Eosinophils % (A) 1.8 %; HCT 32.1 % (39.6-50.0); HGB 10.5 g/dL (13.0-17.0); Lymphocytes # (A) 2.85 X 10*3/uL (0.90-5.00); Lymphocytes % (A) 36.2 %; MCH 28.9 pg (27.0-32.0); MCHC 32.7 g/dL (32.0-37.0); MCV 88.4 FL (80.0-97.0); Mean Platelet Volume 10.4 FL (9.5-12.2); Monocytes # (A) 0.69 X 10*3/uL (0.20-1.00); Monocytes % (A) 8.8 %; NRBC Per 100 WBC 0 X 10*3/uL (0.00-0.01); Neutrophils # (A) 4.16 X 10*3/uL (1.80-7.70); Neutrophils % (A) 52.8 %; Platelet Count 210 X 10*3/uL (140-440); RBC 3.63 X 10*6/uL (4.40-5.60); RDW 13.2 % (11.5-14.5); WBC 7.87 X 10*3/uL (4.50-10.00)
[2024-04-15 08:57] LABS: ALT 13 U/L (10-49); AST 14 U/L (14-35); Albumin 3.5 g/dL (3.8-4.9); Albumin/Globulin Ratio 2.33 Ratio (1.60-3.17); Alkaline Phosphatase 72 U/L (41-126); BUN/Creat Ratio 25.89 Ratio (12.00-20.00); Blood Urea Nitrogen 23.3 mg/dL (9.0-27.0); Calcium 7.9 mg/dL (8.7-10.3); Carbon Dioxide 23.5 mmol/L (21.6-31.8); Chloride 107 mmol/L (96-109); Globulin 1.5 g/dL (1.6-3.3); Glucose 113 mg/dL (70-110); Potassium 3.7 mmol/L (3.5-5.5); Sodium 138 mmol/L (135-145); Total Bilirubin <0.2 mg/dL (0.3-1.2)
[2024-04-15] MEDS ORDERED: hydroCHLOROthiazide 12.5 MG CAP PO SCH (09:00)
[2024-04-15] MEDS: lisinopriL 20 MG TAB PO SCH (09:03)
[2024-04-15] MEDS: PANTOPRAZOLE 40 MG/10 ML VIAL IV SCH (09:03)
[2024-04-15] MEDS: ACETAMINOPHEN TAB 325 MG TAB PO PRN (17:03)
--- NOTE | 2024-04-15 17:29 | P.CONS ---
History of Present Illness - Reason for Consult Consult date: 04/15/24 Rectal bleeding Requesting physician: Oscar Washington - Chief Complaint Rectal bleeding - History of Present Illness This is a pleasant 68-year-old male who presented to the emergency department yesterday with complaints of rectal bleeding that started about a week ago. States he had multiple episodes of bright red blood about a week ago but really not much since then. Did have some darker stool yesterday. He did undergo a outpatient colonoscopy on 04/03/2024 with removal of 5 mm and 1 and half centimeter broad-based ascending colon status post polypectomy and a 3 mm sigmoid polyp status post polypectomy with scattered sigmoid diverticulosis. On admission he was noted to have a hemoglobin of 13.5 with a repeat today of 10.5. Had elevated BUN on admission of 33 but normal today. Denies any further bleeding today. Did have a positive occult stool yesterday. Patient is currently stating he wants to be discharged. Review of Systems REVIEW OF SYSTEMS: CARDIOPULMONARY: No chest pain or shortness of breath. Gastrointestinal: No abdominal pain. No nausea or vomiting. No hematemesis, coffee-ground emesis. Reported rectal bleeding that began about a week ago multiple episodes of bright red now has resolved. GENITOURINARY: No dysuria or hematuria. MUSCULOSKELETAL: Reports normal range of motion., Joint pain. SKIN: No rashes. No jaundice. ENDOCRINE: No chills, fevers. No excessive weight gain or loss. No polydipsia or polyuria. PSYCHIATRIC: Unremarkable. NEUROLOGY: No change in mental status. Denies dizziness, headache. ENT: Vision unremarkable. CONSTITUTIONAL: No recent weight loss. No fever, chills, night sweats. Past Medical History Past Medical History: Hyperlipidemia, Hypertension History of Any Multi-Drug Resistant Organisms: None Reported Past Surgical History: Orthopedic Surgery Additional Past Surgical History / Comment(s): colonoscopy, rt hand procedure, ORIF RT ANKLE Past Anesthesia/Blood Transfusion Reactions: No Reported Reaction Past Psychological History: Depression Smoking Status: Former smoker - Past Family History Mother Family Medical History: Cancer Additional Family Medical History / Comment(s): colon Medications and Allergies Home Medications Medication Instructions Recorded Confirmed Type Amitriptyline HCl 25 mg PO HS 11/03/19 04/14/24 History Multivitamins, Thera [Multivitamin 1 tab PO DAILY 11/03/19 04/14/24 History (formulary)] Simvastatin [Zocor] 20 mg PO HS 11/03/19 04/14/24 History hydroCHLOROthiazide 12.5 mg PO DAILY 03/31/24 04/14/24 History lisinopriL [Zestril] 20 mg PO DAILY 03/31/24 04/14/24 History Allergies Allergy/AdvReac Type Severity Reaction Status Date / Time citalopram [From Celexa] Allergy Unknown Verified 04/14/24 13:47 Physical Exam Vitals: Vital Signs Temp Pulse Pulse Resp BP BP Pulse Ox 04/15/24 06:20 97.7 F 70 17 111/69 97 04/15/24 02:08 97.7 F 76 17 108/66 95 04/14/24 19:35 98.3 F 85 16 136/76 98 04/14/24 17:50 97.9 F 80 16 134/78 98 04/14/24 17:26 84 18 134/84 97 04/14/24 16:23 83 18 139/82 97 Intake and Output 04/14/24 04/15/24 04/15/24 22:59 06:59 14:59 Intake Total 118 Balance 118 Intake: Oral 118 Other: # Voids 1 1 1 # Bowel Movements 1 Weight 65.317 kg General appearance: The patient is alert, oriented, appears in no acute distress. HET: Head is normocephalic and atraumatic. Conjunctiva pink. Sclera anicteric. Neck: Supple without lymphadenopathy. Trachea midline. Heart: Regular. Lungs: Equal expansion, normal respiratory effort. Abdomen: Soft, nontender, nondistended. Skin: No rashes. No jaundice. Extremities: Normal skin color and turgor. No pedal edema. Neurological: No focal deficits. Alert and oriented x3. Results CBC & Chem 7: 04/15/24 04:13 04/15/24 04:13 Labs: Abnormal Lab Results - Last 24 Hours (Table) 04/15/24 04/15/24 Range/Units 04:13 04:13 RBC 3.63 L (4.40-5.60) X 10*6/uL Hgb 10.5 L (13.0-17.0) g/dL Hct 32.1 L (39.6-50.0) % BUN/Creatinine Ratio 25.89 H (12.00-20.00) Ratio Glucose 113 H (70-110) mg/dL Calcium 7.9 L (8.7-10.3) mg/dL Total Bilirubin <0.2 L (0.3-1.2) mg/dL Total Protein 5.0 L (6.2-8.2) g/dL Albumin 3.5 L (3.8-4.9) g/dL Globulin 1.5 L (1.6-3.3) g/dL Assessment and Plan (1) Rectal bleeding Narrative/Plan: 68-year-old male who recently underwent colonoscopy on 04/03/2024 status post polypectomy with bleeding that started the following Saturday about a week ago which she reported as bright red and quite a bit however has decreased since and no further bleeding since hospitalization however was noted to have a drop in hemoglobin from 13.5-10.5. Likely bleeding was secondary to bleeding colon polyp status post polypectomy. Discussed with patient we can monitor for continued bleeding and if it continues would recommend repeat colonoscopy. Continue to monitor for bleeding and hemoglobin. Current Visit: Yes Status: Acute Code(s): K62.5 - HEMORRHAGE OF ANUS AND RECTUM SNOMED Code(s): 71485645 (2) Adenoma of ascending colon Current Visit: No Status: Acute Code(s): D12.2 - BENIGN NEOPLASM OF ASCENDING COLON SNOMED Code(s): 048580890 (3) Adenoma of sigmoid colon Current Visit: No Status: Acute Code(s): D12.5 - BENIGN NEOPLASM OF SIGMOID COLON SNOMED Code(s): 023498526 Plan: 1. Continue symptomatic and supportive care 2. Daily CBC, transfuse for hemoglobin less than 7 3. Continue to monitor for rectal bleeding 4. Clear liquid diet 5. Recommend continuing to monitor for bleeding overnight if no further bleeding and hemoglobin stable patient can be discharged otherwise would recommend proceeding with colonoscopy Thank you for this consultation, we will continue to follow. Dr. Remberto Moreno I agree with the dictator's note, documented as a scribe by Jyothi Farias.
[2024-04-16 04:35] LABS: HCT 24.8 % (39.0-53.0); MCH 30.2 pg (25.0-35.0); MCHC 34.6 g/dL (31.0-37.0); MCV 87.4 fL (80.0-100.0); Platelet Count 188 k/uL (150-450); RBC 2.84 m/uL (4.30-5.90); RDW 13.4 % (11.5-15.5)
[2024-04-16 04:44] LABS: HGB 8.6 gm/dL (13.0-17.5)
[2024-04-16] MEDS: PEG 3350 (236 GM/BTL) + LYTES 4,000 ML BOTTLE PO ONE (08:50)
[2024-04-16] MEDS ORDERED: PROPOFOL 10 MG/ML 20 ML VIAL IV ONE (14:58)
[2024-04-16] MEDS ORDERED: PHENYLEPHRINE 10 MG/ML VIAL ONE (14:58)
[2024-04-16] MEDS: IV FLUID CONTINUATION 200 ML IV ONE (15:00)
[2024-04-16] MEDS: SODIUM CHLORIDE 0.9% 500 ML 500 ML IV ONE (15:13)
--- NOTE | 2024-04-16 15:21 | P.PCN ---
Date of Procedure: 04/16/24 Procedure(s) Performed: BRIEF HISTORY: Patient is a 68-year-old pleasant white male admitted to hospital with acute GI bleed. He presented with multiple episodes of black tarry stools for the last 2 days duration. Initial hemoglobin was 13 g/dL and subsequently dropped to 8 g/dL. The patient underwent a colonoscopy on April 03 and was noted to have a 5 mm and 1.5 cm ascending colon polyp and a small 5 mm sigmoid colon polyp that was removed by snare polypectomy. He is scheduled for colonoscopy for post polypectomy GI bleed. PROCEDURE PERFORMED: Colonoscopy. PREOPERATIVE DIAGNOSIS: Acute GI bleed. IV sedation per Anesthesia. PROCEDURE: After informed consent was obtained, the patient, was brought into the endoscopy unit. IV sedation was administered by Anesthesia under continuous monitoring. Digital rectal examination was normal. Initially the Olympus CF-160 flexible video colonoscope was then inserted in the rectum, gradually advanced into the cecum without any difficulty. Careful examination was performed as the scope was gradually being withdrawn. Ileocecal valve and the appendiceal orifice were visualized and appeared normal. Prep was excellent. Mucosa of the cecum, appeared normal. Terminal ileum was intubated and 10 cm visualized and appeared normal. In the ascending colon there was a 1 cm ulceration noted at the site of recent polypectomy with there was a small 2 to 3 mm visible vessel with no active bleeding. At this time 3 endoclips were placed for adequate hemostasis. Rest of the ascending colon, transverse colon, descending colon, sigmoid colon, and rectum appeared normal. Diffuse scattered diverticulosis seen. Retroflexion was performed in the rectum and no lesions were seen. The patient tolerated the procedure well. IMPRESSION: 1 cm superficial ulceration with small visible vessel but no active bleeding in the ascending colon at the site of previous polypectomy which appears to be the source of recent bleed s/p Endo Clip placement as described above. Diffuse scattered diverticulosis. RECOMMENDATIONS: Findings of this examination were discussed with the patient. He will be given a full liquid diet. He can be discharged home after dinner today.
[2024-04-16 16:02] VITALS: RESP 18; TEMP 97.6
--- NOTE | 2024-04-16 17:46 | P.PN ---
Subjective Progress Note Date: 04/15/24 Patient is a 68-year-old male with past medical history of hypertension, hyperlipidemia, depression and prior history of smoking presents to ER with complaints of rectal bleed. Patient states that he had colonoscopy about 11 days ago. He is did notice blood in the stool yesterday and small episode this morning. Bright red in color. Otherwise patient denies any lightheadedness. No complaints of chest pain or shortness of breath. No abdominal pain. No cough or sputum production. CT of the abdomen pelvis was done showed left-sided colonic diverticulosis, extensive within the sigmoid colon no evidence for acute diverticulitis. No active contrast extravasation identified by CT. Incidental prominent dependent atelectasis in the lungs. Small hiatal hernia. Evidence of prior granulomatous disease. 1.1 cm nonobstructive left renal calculus. Prostatomegaly at 5.6 cm wide. Partially visualized right scrotal hydrocele. EKG showed sinus rhythm. Laboratory data showed WBC 10.6 hemoglobin 13.5 and platelets 280 sodium 136 potassium 4.0 chloride 107 bicarb is 20 BUN 33 and creatinine 0.18 blood sugar 98 liver enzymes are not elevated. FOBT positive. 04/15/2024 Patient is currently resting in the bed. Awake alert and oriented x 3. No complaints of chest pain or shortness of breath. No abdominal pain. Hemoglobin down to 10.5 today. Laboratory data showed sodium 138 potassium 3.7 chloride 107 bicarb is 23.5 BUN 23.3 and creatinine 0.9 and blood sugar 113 and calcium 7.9 total bili less than 0.2 Patient is being continued on Protonix IV. Patient states that he did have bowel movement with streaks of blood.But no blood clots. Current medications reviewed. Objective - Vital Signs Vital signs: Vital Signs Temp 98.7 F 04/15/24 19:21 Pulse 102 H 04/15/24 19:21 Resp 18 04/15/24 19:21 BP 128/85 04/15/24 19:21 Pulse Ox 97 04/15/24 19:21 FiO2 Intake & Output 04/15/24 04/15/24 04/16/24 06:59 18:59 06:59 Intake Total 218 Balance 218 Intake: Oral 218 Other: # Voids 1 1 # Bowel Movements 1 - Exam PHYSICAL EXAMINATION: Patient is lying in the bed comfortably, no acute distress, awake alert and oriented.. HEENT: Normocephalic. Neck is supple. Pupils reactive. Nostrils clear. Oral ca vity is moist. Neck reveals no JVD, carotid bruits, or thyromegaly. CHEST EXAMINATION: Trachea is central. Symmetrical expansion. Lung newton clear to auscultation and percussion. CARDIAC: Normal S1, S2 with no gallops. No murmurs ABDOMEN: Soft. Bowel sounds normal. No organomegaly. No abdominal bruits. Extremities: reveal no edema. No clubbing or cyanosis Neurologically awake, alert, oriented x3 with well-coordinated movements. No focal deficits noted Skin: No rash or skin lesions. Psychiatric: Coperative. Nonsuicidal Musculoskeletal: No joint swelling or deformity. Normal range of motion. - Labs CBC & Chem 7: 04/16/24 03:49 04/15/24 04:13 Labs: Abnormal Lab Results - Last 24 Hours (Table) 04/15/24 04/15/24 Range/Units 04:13 04:13 RBC 3.63 L (4.40-5.60) X 10*6/uL Hgb 10.5 L (13.0-17.0) g/dL Hct 32.1 L (39.6-50.0) % BUN/Creatinine Ratio 25.89 H (12.00-20.00) Ratio Glucose 113 H (70-110) mg/dL Calcium 7.9 L (8.7-10.3) mg/dL Total Bilirubin <0.2 L (0.3-1.2) mg/dL Total Protein 5.0 L (6.2-8.2) g/dL Albumin 3.5 L (3.8-4.9) g/dL Globulin 1.5 L (1.6-3.3) g/dL Assessment and Plan Assessment: Rectal bleeding. Patient underwent colonoscopy on 04/03/2024. Status post polypectomy. Acute GI bleed likely lower. Acute blood loss anemia. Hemoglobin 10.5 today. Nonobstructive left renal calculus 1.1 cm Prostatomegaly Hypertension Depression DVT prophylaxis SCDs Plan: Patient will be continued on IV hydration normal saline. N.p.o. GI is following. Continue with PPI. Continue to monitor H&H. Colonoscopy planned if hemoglobin further drops. Continue other home medications and follow-up closely. Time with Patient: Greater than 30
[2024-04-16 17:59] VITALS: PULSE 78
[2024-04-16 18:01] VITALS: BP 123/74
--- NOTE | 2024-04-18 13:42 | P.DS ---
Providers Date of admission: 04/14/24 14:41 Expected date of discharge: 04/16/24 Attending physician: Lamont Adair Consults: 04/14/24 14:40 Consult Physician Routine Consulting Provider: Della Moreno Consult Reason/Comments: melena, upper gi bleed Do you want consulting provider notified?: Already Contacted Primary care physician: Ge Martinez [facility] Course: Final diagnosis Rectal bleeding. Patient underwent colonoscopy on 04/03/2024. Status post polypectomy. Status post colonoscopy showing 1 cm superficial ulceration with no active bleeding in the ascending colon at the site of the previous polypectomy status post clip placement Acute GI bleed likely lower. Acute blood loss anemia. Hemoglobin 8 today. Nonobstructive left renal calculus 1.1 cm Prostatomegaly Hypertension Depression DVT prophylaxis SCDs GI prophylaxis Full code Discharge disposition Patient is being discharged in a stable condition with guarded prognosis to home. Patient will follow-up with Dr. Martinez in the outpatient setting upon discharge. Patient is to continue with outpatient follow-up with GI as scheduled. Total time taken is greater than 35 minutes. Hospital course This is a 68-year-old male who was recently admitted with rectal bleeding being closely monitored with GI following. Patient recently underwent colonoscopy on 03 April and had some polyps removed. Patient did have a drop in hemoglobin and underwent repeat colonoscopy with GI showing a superficial ulceration in the ascending colon no active bleeding noted of the previous polypectomy site and st atus post Endo Clip placement. Patient has been cleared by GI for discharge home. Please refer to other consultation notes for further HPI. Currently no reports of chest pain, shortness of breath, or palpitations. Patient is afebrile. No reports of nausea or vomiting and patient is tolerating diet. Patient will be discharged home today. Physical exam: Gen: This is a 68-year-old male who is alert and oriented times 3, well- developed, thin built, elderly appearing HEENT: Head is atraumatic, normocephalic. Pupils equal, round. Sclerae is anicteric. Multiple dental caries and broken teeth noted NECK: Supple. No JVD. No lymphadenopathy. No thyromegaly. LUNGS: Clear to auscultation. No wheezes or rhonchi. No intercostal retractions. HEART: Regular rate and rhythm. No murmur. ABDOMEN: Soft. Bowel sounds are present. No masses. No tenderness. EXTREMITIES: No pedal edema. No calf tenderness. NEUROLOGICAL: Patient is awake, alert and oriented x3. Cranial nerves 2 through 12 are grossly intact. Please refer to medication reconciliation sheet for a list of medications. The impression and plan of care has been dictated by Rocio Dias, Nurse Practitioner as directed. Dr. Mana MD I have performed a history and examination and MDM of this patient, discussed the same with the dictator, and agree with the dictator's assessment and plan as written ,documented as a scribe. Based on total visit time, I have performed more than 50% of the visit. Patient Condition at Discharge: Stable Plan - Discharge Summary New Discharge Prescriptions: Continue Simvastatin [Zocor] 20 mg PO HS Amitriptyline HCl 25 mg PO HS Multivitamins, Thera [Multivitamin (formulary)] 1 tab PO DAILY lisinopriL [Zestril] 20 mg PO DAILY hydroCHLOROthiazide 12.5 mg PO DAILY Discharge Medication List Amitriptyline HCl 25 mg PO HS 11/03/19 [History] Multivitamins, Thera [Multivitamin (formulary)] 1 tab PO DAILY 11/03/19 [History] Simvastatin [Zocor] 20 mg PO HS 11/03/19 [History] hydroCHLOROthiazide 12.5 mg PO DAILY 03/31/24 [History] lisinopriL [Zestril] 20 mg PO DAILY 03/31/24 [History] Follow up Appointment(s)/Referral(s): Ge Martienz DO [Primary Care Provider] - 1-2 days Patient Instructions/Handouts: Colonoscopy (DC), Melena (GEN) Discharge Disposition: HOME SELF-CARE
== END 2024-04-16 18:10 | disposition home or self-care (01) | DRG 920 ==
LOC: EC 11:23 → 6NMEDSUR 14:41 → OBSVTOIN 14:41 → 6NMEDSUR 14:59
PROVIDERS: ADMIT Internal Medicine; ATTEND Internal Medicine
PROC: 0W3P8ZZ Control Bleeding in Gastrointestinal Tract, Via Natural or Artificial Opening Endoscopic (ICD-10-PCS; principal; 2024-04-14)
DX: K91.840 Postprocedural hemorrhage of a digestive system organ or structure following a digestive system procedure (principal); D62 Acute posthemorrhagic anemia; K63.3 Ulcer of intestine; Y83.8 Other surgical procedures as the cause of abnormal reaction of the patient, or of later complication, without mention of misadventure at the time of the procedure; D12.5 Benign neoplasm of sigmoid colon; N40.0 Benign prostatic hyperplasia without lower urinary tract symptoms; I10 Essential (primary) hypertension; F32.A Depression, unspecified; E78.5 Hyperlipidemia, unspecified; K44.9 Diaphragmatic hernia without obstruction or gangrene; N20.0 Calculus of kidney; N43.3 Hydrocele, unspecified; Z79.899 Other long term (current) drug therapy; Z87.19 Personal history of other diseases of the digestive system; Z87.891 Personal history of nicotine dependence; Z88.8 Allergy status to other drugs, medicaments and biological substances
CPT/HCPCS: 36415; 45382; 74174; 80053; 82272; 83605; 83690; 83735; 85025; 85027; 85610; 85730; 86850; 86900; 86901; 93005; 96361; 96374; 99285

== ENCOUNTER → 2024-06-05 | Outpatient (CLI) | payer MEDICARE ==
--- NOTE | 2024-06-05 13:46 | US ---
EXAMINATION TYPE: US carotid duplex BILAT DATE OF EXAM: 06/05/2024 COMPARISON: NONE CLINICAL INDICATION: Male, 68 years old with history of R42 DIZZINESS GIDDINESS; dizzy spells TECHNIQUE: Carotid duplex ultrasound examination. Indirect Doppler criteria was utilized. FINDINGS: EXAM MEASUREMENTS: RIGHT: Peak Systolic Velocity (PSV) cm/sec ----- Right CCA: 78.0 ----- Right ICA: 89.7 ----- Right ECA: 105.6 ICA/CCA ratio: 1.2 RIGHT: End Diastole cm/sec ----- Right CCA: 34.3 ----- Right ICA: 41.3 ----- Right ECA: 30.5 LEFT: Peak Systolic Velocity (PSV) cm/sec ----- Left CCA: 89.8 ----- Left ICA: 86.4 ----- Left ECA: 86.4 ICA/CCA ratio: 1.0 LEFT: End Diastole cm/sec ----- Left CCA: 34.9 ----- Left ICA: 34.9 ----- Left ECA: 30.3 VERTEBRALS (direction of flow): Right Vertebral: Antegrade Left Vertebral: Antegrade Rhythm: Normal IMPRESSION: Based on peak systolic velocities ratios and color and grayscale imaging,, there is no hemodynamical ly significant stenosis of the internal or common carotid arteries within the neck. There is no intim al thickening or plaque formation. Criteria for Assigning % of Stenosis / Diameter reduction (Estimation based on the indirect measurements of the internal carotid artery velocities (ICA PSV). 1. Normal (no stenosis)=ICA PSV < 125 cm/s: ratio < 2.0: ICA EDV<40 cm/s. 2. Less than 50% stenosis=ICA PSV < 125 cm/s: ratio < 2.0: ICA EDV<40 cm/s. 3. 50 to 69% stenosis=ICA PSV of 125 to 230 cm/s: ration 2.0 ? 4.0: ICA EDV 40-100 cm/s. 4. Greater than 70% stenosis to near occlusion= ICA PSV > 230 cm/s: ratio > 4.0: ICA EDV > 100 cm/s. 5. Near occlusion= ICA PSV velocities may be low or undetectable: variable ratio and ICA EDV. 6. Total occlusion=unable to detect flow. [facility], , 06/05/2024 1:44 PM
== END | disposition home or self-care (01) ==
LOC: RADUSWWP 13:06
PROVIDERS: ATTEND Family Medicine
DX: R42 Dizziness and giddiness (principal)
CPT/HCPCS: 93880